=== PATIENT | male | born 1945 | race Caucasian/White ===

== ENCOUNTER 2016-08-08 12:00 | Observation (INO) | payer BC, MEDICARE ==
--- NOTE | ~2016-08-08 | DS ---
Discharge Summary [facility] [address] [place]. [address] NAME: PETAR DICKENS JR : 41 STATUS : DIS Skyler PAT#: [id number] AGE: 71 ADM/REG DATE : 08/08/16 MR#: [id number] REPORT SERV DATE: 08/09/16 DICTATED BY: VERÓNICA VELOZ II DATE: 08/09/16 REPORT STATUS : Draft TRANSCRIBED BY: RACH DATE: 08/09/16 ADMISSION DATE: 08/08/2016 DISCHARGE DATE: 08/09/2016 DISCHARGE DIAGNOSES: 1. Hypovolemic shock. 2. Acute gastrointestinal bleed. 3. Lactic acidosis. 4. Metastatic esophageal cancer. 5. History of hypoxic respiratory failure. 6. Chronic obstructive pulmonary disease. 7. Acute kidney injury. 8. Acute blood loss anemia. 9. Coagulopathy. 10.Recent bilateral pulmonary embolisms on Eliquis as well as right lower extremity deep venous thrombosis. CONSULTS: Dr. Gresham with Critical Care and Dr. Murillo with [facility]. BRIEF HISTORY OF PRESENT ILLNESS: The patient is a 71-year-old male with the above history, who presented to [facility] due to black/maroon stools and a syncopal episode. In the ER, he was noted to be markedly hypotensive with hemoglobin of 5.7. For detailed history and physical examination, please see Dr. Pratt's note from 08/08/2016. HOSPITAL COURSE: On admission, the patient was given several units of blood products and his Eliquis was discontinued. On admission, the patient declared he preferred to go home on hospice as soon as possible. Since admission, his blood pressure has come up from initially in the 50 systolic to now 90s. His heart rate also stabilized and his hemoglobin has been transfused up to 7.2. Clinically, he has stabilized and would like to go ahead and go on hospice, so this is being arranged with [facility]. Also, his lactate on admission was 10.8, and is currently 1.6. DISCHARGE MEDICATIONS: Per hospice. DICTATED BY: MD PRABHJOT Cruz II/RACH Verónica Veloz II, MD / [id number] Discharge Summary [place] [address] [address] NAME: PETAR DICKENS : 41 STATUS : DIS Skyler PAT#: [id number] AGE: 71 ADM/REG DATE : 08/08/16 MR#: [id number] REPORT SERV DATE: 08/09/16 DICTATED BY: VERÓNICA VELOZ II DATE: 08/09/16 REPORT STATUS : Draft TRANSCRIBED BY: MODYosi DATE: 08/09/16 CC: Verónica Veloz II, MD
--- NOTE | ~2016-08-08 | HP ---
History And Physical [place] [id number] [place]. [address] NAME: PETAR DICKENS JR : 41 STATUS : ADM Skyler PAT#: [id number] AGE: 71 ADM/REG DATE : 08/08/16 MR#: [id number] REPORT SERV DATE: 08/08/16 DICTATED BY: YEMI PRATT DATE: 08/08/16 REPORT STATUS : Draft TRANSCRIBED BY: RACH DATE: 08/08/16 DATE OF ADMISSION: 08/08/2016 CHIEF COMPLAINT: Weakness. HISTORY OF PRESENT ILLNESS: The patient is a 71-year-old white male with a recent diagnosis of metastatic esophageal adenocarcinoma, presented today with feeling weak progressively since his last visit to the hospital. He has had black/maroon stools. His appetite has been poor. He denied any nausea or vomiting. He has not had any fevers or chills. He said when he tried to get up this morning, he just could not stand on his feet and fell backwards and the reported that he had a syncopal episode. He denies any chest pain or shortness of breath, but he says he just feels poorly. Since he has widely spread metastatic disease and he was found to have a hemoglobin of 5 when he came to the emergency room in talking to his subspecialty physicians including Gastroenterology, Hematology/Oncology and Palliative Care, it was thought that this patient best would be served in hospice after we stabilized his hemoglobin for comfort measures. When I talked to the patient, Critical Care Medicine had already evaluated the patient and because the patient was being made a DNR and comfort care with the exception of the blood products, this patient was referred to the Hospitalist Service for further treatment and evaluation. REVIEW OF SYSTEMS: 10-point review of systems is otherwise negative. PAST MEDICAL HISTORY: Significant for bilateral pulmonary embolisms in 06/2016, also acute right lower extremity DVT, esophageal cancer that is adenocarcinoma, history of hypoxic respiratory failure, he has chronic obstructive pulmonary disease, chronic tobacco abuse, benign prostatic hyperplasia, anemia, oral candidiasis, dysphagia, alcohol abuse, and hypertension. PAST SURGICAL HISTORY: Right inguinal hernia mesh repair, right heel cyst excision, recent endoscopy by Dr. Abram Sims. ALLERGIES: NO KNOWN DRUG ALLERGIES. HOME MEDICATIONS: Albuterol, Eliquis 5 mg twice daily, Symbicort 160/4.25 mcg twice daily, diltiazem CD 180 mg once every morning, Benadryl 25 mg once at bedtime as needed, lisinopril 10 mg once every morning, naproxen 440 mg once daily, Flomax 0.4 mg p.o. daily, stool softener, and chemotherapy done by Dr. Murillo. SOCIAL HISTORY: He smokes one and a half packs per day of cigarettes daily for last 30 years. Drinks one pitcher of beer daily. He also smokes marijuana regularly. He is retired, , and has two daughters. FAMILY HISTORY: Father of congestive heart failure. Mother of unknown cause at age 83. History And Physical [address] [address] NAME: PETAR DICKENS JR : 41 STATUS : ADM Skyler PAT#: [id number] AGE: 71 ADM/REG DATE : 08/08/16 MR#: [id number] REPORT SERV DATE: 08/08/16 DICTATED BY: YEMI PRATT DATE: 08/08/16 REPORT STATUS : Draft TRANSCRIBED BY: RACH DATE: 08/08/16 PHYSICAL EXAMINATION: GENERAL: White male, lying on a gurney, appears to be in no obvious respiratory distress, but chronically ill appearing, older than his stated age. VITAL SIGNS: Blood pressure is 70/50, pulse is 103, saturation of 100% on room air. HEENT: Head is normocephalic and atraumatic. Pupils are equal, round, and reactive to light. Extraocular muscles are intact. Sclerae are anicteric. Conjunctivae pale. Oropharynx, pale mucous membranes. Tongue protrusion midline. Uvula midline. NECK: Supple. No evidence of jugular vein venous distention. No carotid bruits. No thyromegaly. HEART: Regular rate and rhythm. No murmurs, rubs, or gallops are heard. Tachycardia. PMI nondisplaced. LUNGS: Clear to auscultation both anteriorly and posteriorly without rales, rhonchi, wheezing, or consolidation. ABDOMEN: Scaphoid, soft, nontender. Good bowel sounds. No rebound or guarding. No organomegaly. EXTREMITIES: Without cyanosis, clubbing, or edema. NEUROLOGICAL: Seems to be grossly intact. LABORATORY DATA: ABG, pH of 7.49, pCO2 of 27, pO2 of 98, and a bicarb of 20. Sodium is 139, potassium of 4.2, chloride is 103, bicarb is 17, BUN of 29, creatinine is 1.69 (baseline creatinine around 0.5), glucose is 151, calcium is 7.7, total protein 4.3, albumin is 2.1, alkaline phosphatase is 193, ALT is 73, AST is 100. Troponin is 0.04. Lactate level of 10.8. White count is 5.8; hemoglobin of 5.7; hematocrit of 18; hemoglobin was 9.7 on 07/09; MCV is 71; platelet count is 107. No left shift. PT is 25, INR of 2.4, PTT is 32. UA is pending. Blood cultures sent from the emergency room. Chest x-ray, Port-A-Cath remains in good position, otherwise negative AP portable chest. EKG, sinus tachycardia, anterior infarct of undetermined age, poor R-wave progression. IMPRESSION: 1. Hypovolemic shock. 2. GI bleed. 3. Lactic acidosis. 4. Metastatic esophageal cancer. 5. History of hypoxic respiratory failure. 6. Chronic obstructive pulmonary disease. 7. Acute kidney injury. PLAN: The patient will be admitted for observation. After discussing his overall care and the critical nature of his illness, this patient is decided that because of his underlying COPD and his esophageal cancer that is metastatic, we would not want to pursue any aggressive workup. He is a DNR at this time. He has denied pressors. We will transfuse him today and get his hemoglobin above 7, and Hospice will be consulted. This patient otherwise remains a comfort measure, and medicines aimed towards comfort will be provided including antiemetics and also pain medications. I have personally reviewed his home medications. We will discontinue the Eliquis at this time. We will continue to use inhalers to further manage his COPD. History And Physical [address] [address] NAME: MANINDERPETAR YAKOV HENDRICKSON : 41 STATUS : ADM Skyler PAT#: [id number] AGE: 71 ADM/REG DATE : 08/08/16 MR#: [id number] REPORT SERV DATE: 08/08/16 DICTATED BY: YEMI PRATT DATE: 08/08/16 REPORT STATUS : Draft TRANSCRIBED BY: RACH DATE: 08/08/16 SV/RACH Yemi Pratt M.D. / [id number] CC: MD Brian Cruz II, MD Mark S Womack IV, M.D.
--- NOTE | ~2016-08-08 | CN ---
Consultation Report [facility] [address] [place]. [address] NAME: PETAR DICKENS JR : 41 STATUS : ADM Skyler PAT#: [id number] AGE: 71 ADM/REG DATE : 08/08/16 MR#: [id number] REPORT SERV DATE: 08/08/16 DICTATED BY: GABE HOOD DATE: 08/08/16 REPORT STATUS : Draft TRANSCRIBED BY: MODL DATE: 08/08/16 PULMONARY CRITICAL CARE MEDICINE CONSULTATION DATE OF CONSULTATION: Presenting complaint was generalized weakness and pallor. I was asked by Dr. Eugenie Patel from the emergency department to evaluate Mr. Dickens for possible admission to the Critical Care Medicine Service. Briefly, Mr. Dickens is a debilitated 71-year-old gentleman, who has recently been diagnosed with widely metastatic esophageal adenocarcinoma with primary tumor in the distal esophagus greater than 5 cm, and multiple liver METS. He was actually scope by Dr. Coates last month and has also seen Dr. Murillo as well as Radiation Oncology for treatment. He is currently on both chemotherapy and XRT. He presented today after being found in bed by his . Cold, clammy, and generally weak. She urgently transported him to the emergency department and he was seen by Dr. Patel and found to be profoundly anemic and hypotensive in the 60s. His Port-A- Cath was accessed and packed red blood cell transfusions as well as FFP were initiated. Of note, he is on anticoagulation for recent PE, DVT with one of the novel agents. I discussed the case at length with Dr. Martines from Gastroenterology, who felt that he was a poor candidate for endoscopy and likely the source of bleeding was his esophageal tumor. He emphasized that controlling bleeding from disorder tumor is generally unsuccessful and the best approach may be transition toward comfort care in light of his overall poor prognosis due to widely disseminated disease. I also contacted Dr. Murillo from Oncology, who is familiar with the patient from his recent hospital stay as well as his clinic, and he advised that the patient was a very debilitated and that he is not a candidate for the most effective chemotherapy regimen due to his cardiomyopathy with an EF of around 60%. After collecting data and discussing case with Dr. Patel, Dr. Martines, and Dr. Murillo, I went back and discussed the overall situation with the patient and his (the patient is awake, alert, and able to participate in discussion of goals of care). He emphasized that his primary goal is to be pain-free as he approaches the end of his life and that he would not be interested in advanced forms of life support. On further discussion, he verbalized that his primary goal is to be kept comfortable and his was in agreement. We did consult Dr. Cooper to evaluate him and we will admit him to the hospital medicine service as a DNR. For comfort measures, the patient did articulate that he would like to be admitted this evening as he and his accidentally locked themselves out of their home on the way to the hospital and his goal would be to discharge home tomorrow morning under the care of hospice services for ongoing comfort measures. I did complete DNR form as well as comfort care order set and we will hand off his case to the Hospital Medicine Service with Dr. Murillo as a regulatory services consultant as well as Dr. Cooper. Dr. Jason Martines was informally consulted and will be available on an as-needed basis. If additional assistance is needed, Critical Care Medicine Service will follow more peripherally and be available for re- evaluation on an as needed basis if the patient's goals change. Please call me with questions. Consultation Report [address] [place]. [address] NAME: PETAR DICKENS : 41 STATUS : ADM Skyler PAT#: [id number] AGE: 71 ADM/REG DATE : 08/08/16 MR#: [id number] REPORT SERV DATE: 08/08/16 DICTATED BY: GABE HOOD DATE: 08/08/16 REPORT STATUS : Draft TRANSCRIBED BY: RACH DATE: 08/08/16 GAURI/RACH Gabe Hood MD / [id number] CC: Gabe Hood MD
[2016-08-08 11:32] LABS: INTERNATIONAL NORMAL RATI 2.4 UNITS (-); PARTIAL THROMBO TIME 32.6 SEC (22.5-37.2)
[2016-08-08 11:41] LABS: LACTATE 10.8 MMOL/L (0.3-2.4)
[2016-08-08 11:44] LABS: PROTIME (NOT ORD) 25.8 SEC (12.0-14.5)
[2016-08-08 11:45] LABS: CALCIUM, SERUM 7.7 MG/DL (8.5-10.4); CHLORIDE, SERUM 103 MMOL/L (96-112); POTASSIUM, SERUM 4.2 MMOL/L (3.5-5.3); SGOT(AST) 100 U/L (5-40); SGPT(ALT) 73 U/L (5-65); SODIUM, SERUM 139 MMOL/L (135-148); TOTAL BILIRUBIN 0.3 MG/DL (0-1.2); TROPONIN I 0.04 NG/ML (<0.05)
[2016-08-08 11:49] LABS: BUN (BLOOD UREA NITROGEN) 29 MG/DL (6-23); CO2 (CARBON DIOXIDE) 17 MMOL/L (24-34)
[2016-08-08 11:50] LABS: ALBUMIN 2.1 G/DL (3.5-5.0); ALKALINE PHOSPHATASE 109 U/L (45-117); CREATININE 1.69 MG/DL (0.70-1.30); GFR AFRICAN AMERICAN 46 ML/MIN (>=60); GFR NON AFRICAN AMERICAN 39 ML/MIN (>=60); GLOBULIN 2.2 G/DL (2.5-4.1); GLUCOSE, SERUM 151 MG/DL (60-99); TOTAL PROTEIN 4.3 G/DL (6.0-8.5)
[2016-08-08 11:51] LABS: BASOPHILS 0 %; EOSINOPHILS 0.2 %; EOSINOPHILS ABSOLUTE 0.01 10/3/uL (0.0-0.53); IMMATURE GRANULOCYTES 0.3 %; IMMATURE GRANULOCYTES ABSOLUTE 0.02 10/3/uL (0.0-0.11); LYMPHOCYTES 9.4 %; LYMPHOCYTES ABSOLUTE 0.55 10/3/uL (0.67-4.30); MEAN CORPUS HGB CONC 30.9 g/dL (32.0-36.0); MEAN CORPUSCULAR HEMOGLOB 22.2 pg (26.0-34.0); MEAN CORPUSCULAR VOLUME 71.8 fL (80-100); MONOCYTES 4.5 %; MONOCYTES ABSOLUTE 0.26 10/3/uL (0.21-1.20); NEUTROPHILS 85.6 %; NUCLEATED RED BLOOD CELLS 0.7 /100WBC (0-0); RBC DISTRIBUTION WIDTH 17.9 % (12.0-16.0); WHITE BLOOD CELLS 5.8 10/3/uL (4.5-10.5)
[2016-08-08 11:52] LABS: ER CBC TAT 0 Hrs 33 Mins; HEMATOCRIT 18.5 % (40.0-51.0); HEMOGLOBIN 5.7 g/dL (13.6-17.8); PLATELET COUNT 107 10/3/uL (150-400); RED CELL COUNT 2.52 10/6/uL (4.7-6.1)
[2016-08-08 11:53] LABS: MANUAL DIFF NO %
[~2016-08-08 12:00] MED LIST: ADVIL PO; ALEVE220 MG PO; ASPIRIN PO; BEN25 PO; CARDCD180 PO; CENTRUM PO; CHEMO THERAPY; DILT-XR180 MG PO; ELIQUIS 5 MG TAB5 MG PO; FLOMAX4 PO; NYS500UDL PO; OXYCOD PO; PR25 PO; PRIN10 PO; PROAIR HFA INH; STOOL SOFTENER OTC PO; SYMBICORT 160/41 INH INH; VITAMIN PO; ZOFRANODT8 PO
[2016-08-08 12:12] LABS: BAND NEUTROPHILS 4 %; ER DIFF TAT 0 Hrs 54 Mins; LYMPHOCYTES 5 %; LYMPHOCYTES ABSOLUTE (CALC) 0.29 10/3/uL (0.67-4.30); MONOCYTES 2 %; MONOCYTES ABSOLUTE (CALC) 0.12 10/3/uL (0.21-1.20); NEUTROPHILS ABSOLUTE (CALC) 5.39 10/3/uL (2.02-8.40); SEGMENTED NEUTROPHIL (0) 89 %; TOTAL NUCLEATED CELLS 100
[2016-08-08 12:15] LABS: ELLIPTOCYTES 1+ (3-10/OIF) (0-2/OIF); HYPERSEGMENTED NEUT FEW (6-10%) % (0-5)
[2016-08-08 12:17] LABS: ANISOCYTOSIS 1+ (5-10/OIF) (0-5/OIF); HELMET CELLS OCC (0-2/OIF); PLATELET ESTIMATE SLT DEC (ADEQUATE); SCHISTOCYTES OCC (0-2/OIF); TEARDROP SHAPED RBCS OCC (0-2/OIF)
[2016-08-08 12:19] LABS: ACANTHOCYTES OCC (0-2/OIF); HOWELL JOLLY BODIES OCC (0-1)
[2016-08-08 12:20] LABS: POLYCHROMASIA 1+ (2-5/OIF) (0-1/OIF); TOXIC GRANULATION 1+
[2016-08-08 12:22] LABS: PROCALCITONIN 0.23 ng/mL (<0.5)
[2016-08-08 12:34] LABS: ALLENS TEST Pos; BE (BASE EXCESS) -1.6 MEQ/L (0 +/- 2.5); HCO3 (ACTUAL BICARBONATE) 20.1 MEQ/L (23-27); INSTRUMENT SERIAL # 8087; PCO2 (CO2 TENSION) 27 MMHG (35-45); PO2 (O2 TENSION) 98 MMHG (79-93); SAMPLE Arterial; pH 7.49 (7.37-7.43)
[2016-08-08 16:35] LABS: ASCORBIC ACID (UR NOT ORDER) NEG (NEG); BILIRUBIN, URINE NEGATIVE (NEG); ER URINALYSIS TAT 0 Hrs 18 Mins; KETONE, URINE TRACE MG/DL (NEG); LEUKOCYTE ESTERASE(NOT OR NEG (NEG); NITRITE (URINE) NEG (NEG); WBC (NOT ORDERED) (RFLEX) 2 (0-5)
[2016-08-08 22:41] LABS: HEMATOCRIT 23.2 % (40.0-51.0); HEMOGLOBIN 7.7 g/dL (13.6-17.8)
[2016-08-09 05:32] LABS: BASOPHILS 0 %; EOSINOPHILS 0.8 %; EOSINOPHILS ABSOLUTE 0.04 10/3/uL (0.0-0.53); HEMATOCRIT 21.8 % (40.0-51.0); HEMOGLOBIN 7.2 g/dL (13.6-17.8); IMMATURE GRANULOCYTES 0.2 %; IMMATURE GRANULOCYTES ABSOLUTE 0.01 10/3/uL (0.0-0.11); LYMPHOCYTES 10.4 %; MONOCYTES 5.8 %; MONOCYTES ABSOLUTE 0.28 10/3/uL (0.21-1.20); NEUTROPHILS 82.8 %; PLATELET COUNT 78 10/3/uL (150-400); RBC DISTRIBUTION WIDTH 19.9 % (12.0-16.0); RED CELL COUNT 2.94 10/6/uL (4.7-6.1); WHITE BLOOD CELLS 4.8 10/3/uL (4.5-10.5)
[2016-08-09 05:33] LABS: MANUAL DIFF NO %; MEAN CORPUSCULAR HEMOGLOB 24.5 pg (26.0-34.0); MEAN CORPUSCULAR VOLUME 74.1 fL (80-100)
[2016-08-09 06:38] LABS: ANISOCYTOSIS 1+ (5-10/OIF) (0-5/OIF); PLATELET ESTIMATE DEC (ADEQUATE)
[2016-08-09 06:39] LABS: ELLIPTOCYTES 1+ (3-10/OIF) (0-2/OIF); MICROCYTES 1+ (5-10/OIF) (0-5/OIF); POIKILOCYTOSIS 1+ (5-10/OIF) (0-5/OIF)
== END 2016-08-09 12:14 | disposition hospice, home (50) ==
LOC: ER 12:00 → CDU1 14:10 → 4EA 16:55
PROVIDERS: Emergency Medicine; Internal Medicine
DX: R57.1 Hypovolemic shock (principal); K92.2 Gastrointestinal hemorrhage, unspecified; E87.2 Acidosis; C15.9 Malignant neoplasm of esophagus, unspecified; J44.9 Chronic obstructive pulmonary disease, unspecified; N17.9 Acute kidney failure, unspecified; D62 Acute posthemorrhagic anemia; I10 Essential (primary) hypertension; I82.401 Acute embolism and thrombosis of unspecified deep veins of right lower extremity; N40.0 Benign prostatic hyperplasia without lower urinary tract symptoms; B37.0 Candidal stomatitis; F17.210 Nicotine dependence, cigarettes, uncomplicated; F12.90 Cannabis use, unspecified, uncomplicated; F10.10 Alcohol abuse, uncomplicated; Z86.711 Personal history of pulmonary embolism; Z82.49 Family history of ischemic heart disease and other diseases of the circulatory system; Z98.890 Other specified postprocedural states
CPT/HCPCS: 36415; 36430; 36600; 71010; 80053; 81001; 82805; 83605; 84145; 84484; 85014; 85018; 85025; 85610; 85730; 86850; 86900; 86901; 86920; 87040; 93005; 94640; 99291; A9270-GY; G0378; P9016